=== PATIENT | female | born 1980 | race African-American/Black ===

== ENCOUNTER 2017-09-11 15:25 | Emergency (ER) | payer OTHER, SELFPAY ==
[2017-09-11] MEDS ORDERED: Ondansetron HCl/PF 4 MG/2 ML Vial ONE (15:50)
[2017-09-11] MEDS ORDERED: Morphine 4 MG/ML Carpuject ONE (15:50)
[2017-09-11] MEDS ORDERED: Famotidine/PF 20 mg/2ml Vial ONE (15:50)
[2017-09-11 16:02] LABS: #Basophils 0.1 thou/uL (0.0-0.2); #Eosinphils 0.2 thou/uL (0.0-0.7); #Lymphocytes 2.4 thou/uL (1.20-3.40); #Monocytes 1.1 thou/uL (0.11-0.59); #Neutrophils 4.9 thou/uL (1.40-6.50); %Basophils 0.7 % (0.0-1.0); %Eosinophils 2.2 % (0.0-10.0); %Monocytes 12.2 % (0.0-10.0); Hematocrit 30.3 % (36.0-47.0); Mean Platelet Volume 8.5 fL (7.4-10.4); Red Blood Cell (RBC) Count 3.79 mill/uL (4.20-5.40); White Blood Cell (WBC) Count 8.6 thou/uL (4.8-10.8)
[2017-09-11 16:19] LABS: ALT (SGPT) 11 U/L (8-55); AST (SGOT) 14 U/L (5-34); Alkaline Phosphatase 71 U/L (40-150); Anion Gap 14 mmol/L (10-20); BUN (Urea Nitrogen) 7 mg/dL (7.0-18.7); Bilirubin, Total 0.2 mg/dL (0.2-1.2); Calc. Creatinine Clearance 0 mL/min (70-130); Calcium 9.8 mg/dL (7.8-10.44); Carbon Dioxide 25 mmol/L (22-29); Chloride 106 mmol/L (98-107); Estimated GFR-MDRD Greater than 90; Globulin 4.1 g/dL (2.4-3.5); Lipase 11 U/L (8-78); Protein, Total 7.9 g/dL (6.0-8.3)
[2017-09-11 17:07] LABS: Bilirubin Small (Negative); Blood, Urine Negative (Negative); Glucose, Urine (Dipstick) Negative (Negative); Ketone, Urine Trace mg/dL (Negative); Nitrite Negative (Negative); Protein, Urine (Dipstick) 100 mg/dL (Neg-Trace); Urobilinogen 0.2 mg/dL (0.2-1.0)
[2017-09-11 17:11] LABS: Bacteria/HPF 2+ HPF (None Seen); WBC/HPF 21-50 HPF (0-3)
--- NOTE | 2017-09-11 18:02 | ULT ---
RIGHT UPPER QUADRANT ULTRASOUND: Indication: 37-year-old female with abdominal pain. Comparison: CT abdomen/pelvis 01-14-17. FINDINGS: The liver is enlarged measuring 19.9 cm. No focal hepatic lesion is evident. Gallbladder is within normal limits. No sonographic valerio's sign is reported. Common bile duct measu res 4.8 mm. Visualized aspects of the pancreas are unremarkable. Right kidney measures 13.2 cm in length. IMPRESSION: Hepatomegaly. No additional acute sonographic abnormality. POS: [facility]
[2017-09-11] MEDS ORDERED: metroNIDAZOLE 500 MG TAB ONE (18:23)
[2017-09-11] MEDS ORDERED: Ciprofloxacin 500 MG TAB ONE (18:23)
--- NOTE | 2017-09-11 20:09 | CT ---
NONCONTRAST CT OF THE ABDOMEN AND PELVIS: Indication: Epigastric abdominal pain with diarrhea. FINDINGS: There is wall thickening and pericolonic inflammatory stranding involving the distal transverse colon , splenic flexure and proximal descending colon. There are a few scattered diverticula present. There is a moderate amount of retained stool. There is a normal appendix in the right lower quadrant. Ther e is stable splenomegaly measuring 14.2 cm when compared to the prior dated 01-14-17. The liver remains enlarged. Unopacified pancreas and spleen are unremarkable. No drainable fluid collection is evident . No acute osseous abnormality is evident. IMPRESSION: 1. Findings suspicious for mild colitis which may be related to colonic diverticulitis. 2. No drainable fluid collection is evident. 3. Stable hepatosplenomegaly. POS: [facility]
== END 2017-09-11 18:32 | disposition home or self-care (01) ==
LOC: SCSER 15:25
DX: K52.9 Noninfective gastroenteritis and colitis, unspecified (principal); E11.9 Type 2 diabetes mellitus without complications; I10 Essential (primary) hypertension; Z79.4 Long term (current) use of insulin; Z87.891 Personal history of nicotine dependence
CPT/HCPCS: 36415; 74176; 76705; 80053; 81003; 81015; 83690; 84703; 85025; 96361; 96374; 96375; J2270; J2405; S0028

== ENCOUNTER 2017-11-19 10:29 | Emergency (ER) | payer SELFPAY ==
[2017-11-19 11:28] LABS: Bilirubin Small (Negative); Blood, Urine Negative (Negative); Clarity Hazy (Clear); Glucose, Urine (Dipstick) Negative (Negative); Leukocyte Small (Negative); Nitrite Negative (Negative); Protein, Urine (Dipstick) 100 mg/dL (Neg-Trace); Specific Gravity, Urine 1.026 (1.002-1.036); Urobilinogen 0.2 mg/dL (0.2-1.0); pH, Urine 5.5 (5.0-9.0)
[2017-11-19 11:29] LABS: RBC/HPF None Seen HPF (0-3); Squamous Epithelial 21-50 HPF (0-3)
[2017-11-19 11:30] LABS: Bacteria/HPF 3+ HPF (None Seen)
--- NOTE | 2017-11-19 11:43 | RAD ---
RADIOGRAPH CHEST 2 VIEWS: Date: 11/19/17 HISTORY: 37-year-old female with cough. FINDINGS: The thoracic aorta is tortuous and ectatic. There is no evidence of air space density, pneumothorax, or pulmonary edema. There is no cardiomegaly or pleural effusion. IMPRESSION: 1. No acute cardiopulmonary findings. 2. Ectasia of thoracic aorta. This is unusual for age 37 years. Possible etiologies include chronic hypertension and connective tissue disease. 3. No significant interval change compared to 04/29/16. sarah [] POS: [facility]
== END 2017-11-19 11:53 | disposition home or self-care (01) ==
LOC: SCSER 10:29
DX: J11.1 Influenza due to unidentified influenza virus with other respiratory manifestations (principal); I10 Essential (primary) hypertension; E11.9 Type 2 diabetes mellitus without complications; Z79.4 Long term (current) use of insulin; Z87.891 Personal history of nicotine dependence
CPT/HCPCS: 71046; 81003; 81015; 87086; 87804

== ENCOUNTER 2018-03-30 19:42 | Emergency (ER) | payer OTHER, SELFPAY ==
--- NOTE | 2018-03-30 20:43 | CT ---
CT CERVICAL SPINE 03/30/18 PROVIDED CLINICAL HISTORY: Trauma. FINDINGS: There is no evidence for fracture or traumatic subluxation. No prevertebral soft tissue swelling appa rent. Nonspecific prominence of the nasopharyngeal adenoidal tissue. Cervical degenerative changes ar e seen. Right bony foraminal narrowing is present at C7-T1. There is disc osteophyte complex at C 4-5 which has a leftward eccentric component associated with uncinate process hypertrophy producing effa cement of the left ventral lateral spinal canal. No lytic or blastic lesions are seen. The lung apice s are not included. IMPRESSION: 1. No evidence for fracture or traumatic subluxation. 2. Cervical degenerative changes as described above. Nonemergent cervical MRI may be useful for further evaluation as clinically indicated. POS: [facility]
== END 2018-03-30 20:55 | disposition home or self-care (01) ==
LOC: SCSER 19:42
DX: S16.1XXA Strain of muscle, fascia and tendon at neck level, initial encounter (principal); M50.323 Other cervical disc degeneration at C6-C7 level; E11.9 Type 2 diabetes mellitus without complications; I10 Essential (primary) hypertension; F17.210 Nicotine dependence, cigarettes, uncomplicated; V43.52XA Car driver injured in collision with other type car in traffic accident, initial encounter
CPT/HCPCS: 72125